=== PATIENT | female | born 1950 | race Caucasian/White ===

== ENCOUNTER 2017-12-24 06:57 | Inpatient (IN) | payer BC, MEDICARE ==
[~2017-12-24 06:57] MED LIST: CEFAZOLIN 2 Gram 2 GM/50 ML BAG IVPB ONE; CELECOXIB 100 MG CAPSULE PO ONE; FAMOTIDINE 20MG TABLET PO ONE; MECLIZINE 25 MG TABLET PO ONE; METOCLOPRAMIDE 10 MG TABLET PO ONE; VANCOMYCIN HCL 1,000 MG in DEXTROSE 5 % IN WATER 250 ML IVPB ONE
[2017-12-24 07:52] LABS: ABO GROUP O; ANTIBODY SCREEN NEGATIVE (NEGATIVE); RH TYPE POSITIVE
[2017-12-24] MEDS ORDERED: TRANEXAMIC ACID 1,000 MG/10 ML ML IV ONE ×2 (08:14→15:52)
[2017-12-24] MEDS ORDERED: 0.9 % SODIUM CHLORIDE 10 ML VIAL IVP ONE (08:14)
[2017-12-24] MEDS ORDERED: BISACODYL 10 MG SUPP RC PRN (11:17)
[2017-12-24] MEDS ORDERED: ONDANSETRON HCL IV 4 MG/2 ML VIAL IVP PRN (11:17)
[2017-12-24] MEDS ORDERED: MAGNESIUM HYDROXIDE 30 ML UDC PO PRN (11:17)
[2017-12-24] MEDS ORDERED: KETOROLAC 30 MG/ML VIAL IVP PRN ×2 (11:17)
[2017-12-24] MEDS ORDERED: AL HYDROX/MAG HYDROX 30ML UD PO PRN (11:17)
[2017-12-24] MEDS ORDERED: HYDROCODONE/APAP 10/325 TABLET PO PRN (11:17)
[2017-12-24] MEDS ORDERED: ZOLPIDEM TARTRATE 5 MG TABLET PO PRN (11:17)
[2017-12-24] MEDS ORDERED: ACETAMINOPHEN 325 MG TAB PO PRN (11:17)
[2017-12-24] MEDS ORDERED: ACETAMINOPHEN W/ CODEINE 300MG/60MG TABLET PO PRN (11:17)
[2017-12-24] MEDS ORDERED: NALOXONE 0.4 MG/1 ML VIAL IVP PRN (11:17)
[2017-12-24] MEDS ORDERED: DIPHENHYDRAMINE HCL 25 MG CAPSULE PO PRN (11:17)
[2017-12-24] MEDS ORDERED: ALBUTEROL HFA 8 GM INHALER INH PRN (13:09)
[2017-12-24] MEDS ORDERED: ALPRAZOLAM 0.25 MG TABLET PO PRN (13:30)
[2017-12-24] MEDS ORDERED: HYDROMORPHONE PF 1MG/ML **AMPULE IV ONE ×2 (14:00→15:52)
[2017-12-24] MEDS ORDERED: KETOROLAC 30 MG/ML VIAL IVP ONE (14:00)
[2017-12-24] MEDS ORDERED: ONDANSETRON HCL IV 4 MG/2 ML VIAL IVP ONE (14:00)
[2017-12-24] MEDS ORDERED: EPHEDRINE SULFATE 50 MG/ML ML IV ONE (14:00)
[2017-12-24] MEDS ORDERED: MIDAZOLAM HCL 2MG/2ML VIAL IV ONE (14:00)
[2017-12-24] MEDS ORDERED: DIPHENHYDRAMINE HCL 50 MG/ML VIAL IVP ONE (14:00)
[2017-12-24] MEDS ORDERED: *PACU ONLY* KETAMINE HCL 10 MG/ML (20ML) VIAL IV ONE (14:00)
[2017-12-24] MEDS ORDERED: PROPOFOL 10 MG/ML VIAL IV ONE (14:00)
[2017-12-24] MEDS ORDERED: FENTANYL PF 100MCG/2ML VIAL IV ONE (14:00)
[2017-12-24] MEDS: ACETAMINOPHEN W/ CODEINE 300MG/60MG TABLET PO PRN (14:29)
--- NOTE | 2017-12-24 14:38 | Rehab Evaluation ---
Patient Information - Patient Information Diagnosis: L hip DJD Ordered Treatment: PT Evaluate and Treat Status: Initial Evaluation Surgery: Yes (CANDIDO) Date of Surgery: 12/24/17 Past Medical/Surgical Hx: PAST MEDICAL/SURGICAL HISTORY Past Surgical History tubal umbilical hernia bowel resection hyst skin graft left thumb cardiac stent 1998 c scope bilat cat multiple back injs PMH - Respiratory Hx Respiratory Disorders Yes Hx Asthma No Hx Bronchitis Yes Hx Chronic Obstructive Yes: well controlled uses rescue inhaler when Pulmonary Disease (COPD) humid Hx Dyspnea No Hx Pneumonia Yes Hx Pulmonary Embolism No Hx Sleep Apnea No Hx Tuberculosis No Hx of CPAP No Hx of SOB Yes: at times PMH - Cardiovascular Hx Cardiovascular Disorders Yes Hx Abnormal EKG Yes Hx Cardiac Catheterization No Hx Chest Pain No Hx Congestive Heart Failure No Hx Deep Vein Thrombosis No Hx Edema No Hx Heart Attack Yes: 1997 Hx Hypertension Yes: on meds good control Hx Hypotension No Hx Irregular Heartbeat No Hx Palpitations No Hx Pacemaker/Defibrillator No Hx Vascular Disease No Hx Coronary Artery Disease Yes Hx Coronary Stent Yes: x's 1 1998 Exercise Tolerance Fair Comment: uses walker PMH - Neuro Hx Neurological Disorders No PMH - GI Hx Gastrointestinal Disorders No PMH - Hx Genitourinary Disorders No Comment: s/p hyst PMH - Endocrine Hx Endocrine Disorders No Hx Diabetes No Hx Thyroid Disease No PMH - Musculoskeletal Hx Musculoskeletal Disorders Yes Hx Arthritis Yes: DDD OA Hx Back Injury No Hx Fibromyalgia No Hx Gout No Hx Musculoskeletal Disease No Hx Osteoporosis No PMH - Psych Hx Psychiatric Problems Yes Hx Anxiety Yes: uses xanax at times PMH - Hematology/Oncology Hx Hematology/Oncology No Disorders Premorbid Status: Detail (The patient was independent with mobility and used a cane with ambulation prior to surgery.) Social History: Detail (The patient is living with a friend post surgery in a one story home with 2 steps without a handrail. The patient's bathroom is equipped with a tub/shower combination with grab bars and a standard toilet. The patient has a tub seat and an elevated toilet seat. The patient has a 4 wheeled walker and a standard cane with a wide base of support.) Precautions: [place], Fall, Other (Total hip precautions. The patient required verbal cues to recall all THR precautions.) - Time With Patient Total Time Spent With Patient (Min): 30 Treatment Procedures: Detail (Initial Evaluation, gait training.) Subjective Information - Subjective Information Per Patient (The patient had no complaints of pain. The patient did complain of lightheadness when ambulating.) Objective Data - Mental Status Patient Orientation: Oriented x3 - Visual Perception Appears within normal limits for therapeutic activities - ROM Not within normal limits (left hip ROM is within THR precautions.) - Strength/Tone Not within normal limits (Patient's LE strength was not tested s/p surgery however patient's LE strength was functional.) - Bed Mobility Independent (Independent with supine to sit with THR precautions maintained.) - Transfers Independent (Independent sit to and from stand transfers. Patient completed toilet transfer with supervision for safety.) - Balance Balance Sitting: Good Balance Standing: Good - Sensation Intact - Gait Detail (The patient ambulated with her own 4 wheeled walker a distance 48 feet x1, WBAT on the L LE with assist of 1 to handle equipment.) Therapy Assessment - Therapy Assessment Detail (The patient was independent with bed mobility and transfers, with supervision for safety only for ambulation. Feel the patient will progress well with mobility.) Problem List - Problem List Physical Therapy Problem List: Detail (1) Decreased L LE strength as to be expected following surgery. 2) Nonambulatory on stairs) Goals - Goals Physical Therapy Goals: 1) The patient will be independent with HEP of CANDIDO exercise program. 2) The patient will demonstrate good understanding of CANDIDO precautions. 3) The patient will ambulate on stairs with supervision and of 1 for safety. Prognosis - Prognosis Good Plan - Plan Physical Therapy Plan: PT 1-2 times a day until all inpatient PT goals are met for gait training, transfer training and instruction in HEP of CANDIDO exercises.
[2017-12-24] MEDS ORDERED: HETASTARCH IN 0.9 % NACL 500 ML IV ONE (15:52)
--- NOTE | 2017-12-24 16:31 | Operative Note ---
DATE OF SURGERY: 12/24/17 PREOPERATIVE DIAGNOSIS: END-STAGE ARTHROSIS OF THE LEFT HIP. POSTOPERATIVE DIAGNOSIS: END-STAGE ARTHROSIS OF THE LEFT HIP. PROCEDURE: CEMENTLESS LEFT TOTAL HIP ARTHROPLASTY USING HANEY-NEPHEW COMPONENTS WITH A SIZE 54 NO-HOLE REFLECTION CUP, A 35 DEGREE OFFSET, 32 MM DIAMETER LINER , A SIZE 13 HIGH OFFSET CEMENTLESS [place] STEM WITH A +0, 32 MM DIAMETER COBALT CHROME HEAD. STAFF SURGEON: DR. GALLEGO. ANESTHESIA: SPINAL. PREPARATION: CHLORAPREP. INDIVIDUAL CONSIDERATION: NONE. PROCEDURE: The patient was taken to the Operating Room and placed supine on the operating room table. She had a successful induction of a spinal anesthetic. She was then placed on her side, left side up, and her left leg and hip were prepped and draped in the usual fashion. The patient had direct posterior approach to the hip. Sharp dissection was carried down through the skin and subcutaneous tissues. Small veins were coagulated with a Bovie. The tensor gluteal fascia was opened along the entire length of the incision and deep retractors were placed. Short external rotators were identified, piriformis fossa and removed and this exposed the posterior capsule. The posterior capsulectomy was performed. The hip was dislocated posteriorly. She had flattening of the head and large osteophytes. A femoral neck cut was then made a little above a fingerbreadth above the lesser troch using an oscillating saw. A rim capsulectomy was performed starting with 45 mm reamer to get to the medial wall. I reamed the introitus, which was a 53 for a size 54 cup. I just slightly under-reamed to 52. After thorough irrigation, I impacted a size 54 no-hole reflection cup at 20 degrees of forward flexion and 40 degrees of abduction using the extra-articular alignment guide and bony landmarks. It was set and found to be solid. The center cap screw was placed and a 32 mm diameter, 35-degree offset liner was impacted and there was solid cementless fixation. The proximal femur was delivered into the wound and box cutting osteotome was used to remove proximal metaphyseal bone. Mid stem reaming was done to a size 13. I started feeling bony cortex at maybe 11. I broached a 13. I tried to antevert as much as I could. She had a neutral angle but I got about 20 degrees. After calcar reaming with the broach, which was solid, I then found with a High Offset +0, I had full stability. I removed the broach, irrigated out completely, impacted a size 13 High Offset [employer] stem with solid calcar contact and solid cementless fixation. I irrigated and dried the Flood Taper in the wound. Impacted a size 33 [place] head and reduced the hip. I had solid stability. Even in full flexion and internal rotation up to 20-30 degrees with it flexed to 140, I had stability, full anterior stability with the hip in full extension and external rotation. She had a flexion contracture preoperatively and I was able to stretch this out to at least neutral. The sciatic nerve was inspected and found to be completely intact. After good hemostasis, the tensor gluteal fascia was then closed with a running #1 [address] I did place 30 mL of Tranexamic acid mixed with saline into the space. The subcutaneous was closed with running 0 quill and the skin was closed with girish. The skin and subcutaneous tissues were infiltrated with 30 mL of 0.5% Marcaine with Epinephrine and a sterile Bulkee compressive Aquacel-type dressing was applied. The patient tolerated the procedures well. Needle and sponge counts were correct. Estimated blood loss was minimal and was taken back to Recovery in good condition. There were no complications. JOB NUMBER: [id number] [facility]
[2017-12-24] MEDS: CEFAZOLIN 2 Gram 2 GM/50 ML BAG IVPB SCH (16:54)
[2017-12-24] MEDS: POTASSIUM CHLORIDE/D5-0.9%NACL 20 MEQ/1,000 ML BAG IV SCH (16:54)
[2017-12-24] MEDS: TRAMADOL HCL 50 MG TABLET PO PRN (16:55)
[2017-12-24] MEDS: HYDROCODONE/APAP 10/325 TABLET PO PRN (21:34)
[2017-12-24] MEDS: HYDROMORPHONE HCL 2 MG/ML VIAL IM PRN ×2 (21:36→21:53)
[2017-12-24] MEDS: DOCUSATE SODIUM 100 MG CAPSULE PO SCH (21:39)
[2017-12-24] MEDS ORDERED: ATORVASTATIN 20 MG TABLET PO SCH (22:00)
[2017-12-25] MEDS: CEFAZOLIN 2 Gram 2 GM/50 ML BAG IVPB SCH ×2 (00:59→08:54)
[2017-12-25] MEDS: HYDROMORPHONE HCL 2 MG/ML VIAL IM PRN ×2 (01:06→04:07)
[2017-12-25] MEDS: POTASSIUM CHLORIDE/D5-0.9%NACL 20 MEQ/1,000 ML BAG IV SCH (01:09)
[2017-12-25] MEDS: HYDROCODONE/APAP 10/325 TABLET PO PRN ×2 (01:47→06:37)
[2017-12-25 06:41] LABS: HEMATOCRIT 32.3 % (35.0-47.0)
[2017-12-25 06:59] LABS: BLOOD UREA NITROGEN 11 mg/dL (8-23); CREATININE 0.6 mg/dL (0.5-0.9); EST GLOMERULAR FILTRATION RATE > 60 mL/min; GLUCOSE,RANDOM 128 mg/dL (74-109)
[2017-12-25] MEDS: ACETAMINOPHEN W/ CODEINE 300MG/60MG TABLET PO PRN ×2 (08:54→13:47)
[2017-12-25] MEDS ORDERED: BREO (FLUTICASONE/VILANTEROL) 100MCG/25MCG INHALER INH SCH (10:00)
[2017-12-25] MEDS ORDERED: LISINOPRIL 10 MG TABLET PO SCH (10:00)
[2017-12-25] MEDS ORDERED: ASPIRIN 325 MG TAB ENTERIC-COATED PO SCH (10:00)
[2017-12-25] MEDS ORDERED: RIVAROXABAN 10 MG TABLET PO SCH (10:00)
[2017-12-25] MEDS ORDERED: MULTIVITAMINS/MINERALS TABLET PO SCH (10:00)
[2017-12-25] MEDS ORDERED: CHOLECALCIFEROL 1,000 UNIT TABLET PO SCH (10:00)
[2017-12-25] MEDS ORDERED: FERROUS SULFATE 325 MG TAB PO SCH (10:00)
[2017-12-25] MEDS: TRAMADOL HCL 50 MG TABLET PO PRN (10:32)
[2017-12-25] MEDS: DOCUSATE SODIUM 100 MG CAPSULE PO SCH (10:33)
--- NOTE | 2017-12-25 10:51 | Rehab Evaluation ---
Patient Information - Patient Information Diagnosis: L hip DJD Ordered Treatment: OT Evaluate and Treat Status: Initial Evaluation Surgery: Yes (CANDIDO) Date of Surgery: 12/24/17 Past Medical/Surgical Hx: PAST MEDICAL/SURGICAL HISTORY Past Surgical History tubal umbilical hernia bowel resection hyst skin graft left thumb cardiac stent 1998 c scope bilat cat multiple back injs PMH - Respiratory Hx Respiratory Disorders Yes Hx Asthma No Hx Bronchitis Yes Hx Chronic Obstructive Yes: well controlled uses rescue inhaler when Pulmonary Disease (COPD) humid Hx Dyspnea No Hx Pneumonia Yes Hx Pulmonary Embolism No Hx Sleep Apnea No Hx Tuberculosis No Hx of CPAP No Hx of SOB Yes: at times PMH - Cardiovascular Hx Cardiovascular Disorders Yes Hx Abnormal EKG Yes Hx Cardiac Catheterization No Hx Chest Pain No Hx Congestive Heart Failure No Hx Deep Vein Thrombosis No Hx Edema No Hx Heart Attack Yes: 1997 Hx Hypertension Yes: on meds good control Hx Hypotension No Hx Irregular Heartbeat No Hx Palpitations No Hx Pacemaker/Defibrillator No Hx Vascular Disease No Hx Coronary Artery Disease Yes Hx Coronary Stent Yes: x's 1 1998 Exercise Tolerance Fair Comment: uses walker PMH - Neuro Hx Neurological Disorders No PMH - GI Hx Gastrointestinal Disorders No PMH - Hx Genitourinary Disorders No Comment: s/p hyst PMH - Endocrine Hx Endocrine Disorders No Hx Diabetes No Hx Thyroid Disease No PMH - Musculoskeletal Hx Musculoskeletal Disorders Yes Hx Arthritis Yes: DDD OA Hx Back Injury No Hx Fibromyalgia No Hx Gout No Hx Musculoskeletal Disease No Hx Osteoporosis No PMH - Psych Hx Psychiatric Problems Yes Hx Anxiety Yes: uses xanax at times PMH - Hematology/Oncology Hx Hematology/Oncology No Disorders Premorbid Status: Detail (The patient was independent with mobility and used a Hurrycane and 4WW with ambulation prior to surgery. Pt. reported being Ind. in all ADLs prior to surgery but required assistance with laundry.) Social History: Detail (The patient is living with a friend (Jac[place]) post surgery in a one story home with 2 steps without a handrail. The patient's bathroom is equipped with a tub/shower combination with grab bars and a standard toilet. The patient has a tub seat, an elevated toilet seat, and mechanic chief. The patient has a 4 wheeled walker and a Hurrycane with a wide base of support.) Precautions: [place], Fall, Other (Total hip precautions. The patient required verbal cues to recall all THR precautions.) - Time With Patient Total Time Spent With Patient (Min): 30 Treatment Procedures: Detail (OT evaluation: Low Complexity) Subjective Information - Subjective Information Per Patient (Pt. stated she was frustrated and agitated due to increased pain, lack of sleep, and only receiving bits and peices of information regarding recovery on this date.) Objective Data - Pain Pain Present: Yes Pain Intensity: 7 (Pt. was recently administered pain medication. ) Pain Scale Used: Numeric (1 - 10) - Mental Status Patient Orientation: Oriented x3 - Visual Perception Appears within normal limits for therapeutic activities - ROM Other (WNL to complete ADLs such as UB/LB dressing and toileting.) - Strength/Tone Other (WNL to complete ADLS such as UB/LB dressing and toileting.) - Coordination Appears within normal limits for therapeutic activities - Bed Mobility Independent (Ind. from supine > EOB but required min VC to adhere to hip precautions with EOB > supine.) - Transfers Independent (Sit <> stand from bed and 3-in-1 commode to 4WW.) - Balance Balance Sitting: Good Balance Standing: Good - ADL's/IADL's Detail (Bed mobility supine > EOB Ind. and EOB > supine required VC to adhere to hip precautions. Functional mobility Ind. within pt.'s room to complete ADL tasks. Toileting with 3-in-1 commode Ind. including hyiegne and clothing management while adhering to hip precautions. Education provided to pt. regarding safely donning/doffing pants with use of mechanic chief and donning/doffing slip on shoes to adhere to hip precautions. Pt. showed understanding through demonstration of donning pants with mechanic chief, shoes, and verbalizing understanding of doffing pants.) Therapy Assessment - Therapy Assessment Detail (Pt. tolerated well and demonstrated good prognosis with requiring VC to adhere to hip precautions.) Patient Education - Patient Education Teaching Topic: Equipment Use, Precautions Response: Return Demonstration, Reinforcement Needed (VC required to adhere to hip precautions.), Verbalize Understanding Teaching Method: Demonstration Teaching Recipient: Patient Problem List - Problem List Physical Therapy Problem List: Detail (1) Decreased L LE strength as to be expected following surgery. 2) Nonambulatory on stairs) Goals - Goals Physical Therapy Goals: 1) The patient will be independent with HEP of CANDIDO exercise program. 2) The patient will demonstrate good understanding of CANDIDO precautions. 3) The patient will ambulate on stairs with supervision and of 1 for safety. Prognosis - Prognosis Good Plan - Plan Physical Therapy Plan: PT 1-2 times a day until all inpatient PT goals are met for gait training, transfer training and instruction in HEP of CANDIDO exercises. Occupational Therapy Plan: No further Inpatient OT required on this date.
--- NOTE | 2017-12-25 11:41 | Physical Therapy Tx Note ---
Physical Therapy Tx Note - Treatment Note Tolerated: Good Total Time Spent With Patient: 20 Physical Therapy Tx Note: Detail (The patient was lying in bed when PT arrived and had complaints of hip pain. The patient ambulated with wheeled walker a distance of 200 feet WBAT on the L LE independently.The patient ambulated on 3 steps with use of railing and standard cane, WBAT on the L LE independently. The patient's CANDIDO precautions and HEP were reviewed. The patient has met all inpatient PT goals.) Physical Therapy Problem List: Detail (1) Decreased L LE strength as to be expected following surgery. 2) Nonambulatory on stairs) Physical Therapy Goals: 1) The patient will be independent with HEP of CANDIDO exercise program MET. 2) The patient will demonstrate good understanding of CANDIDO precautions. MET. 3) The patient will ambulate on stairs with supervision and of 1 for safety.MET Physical Therapy Plan: The patient has met all inpatient PT goals and is discharged from inpatient PT at this time. The patient is to receive outpatient PT.
--- NOTE | 2017-12-26 20:10 | Discharge Summary ---
DATE OF ADMISSION: 12/24/2017 DATE OF DISCHARGE: 12/25/2017 DATE OF SURGERY: 12/24/2017 HISTORY: Lisa is a delightful 67-year-old female who presents with end-stage arthrosis of her left hip. She was admitted after a left total hip arthroplasty. Postoperatively she did well. Her discharge hemoglobin was 10. She did not require transfusion. DISCHARGE INSTRUCTIONS: The plan is to discharge her to home in the care of her family. She wants to go directly to outpatient physical therapy. She will take Xarelto for an additional four days and then she will continue on her daily Aspirin regimen, which will cover her for DVT prophylaxis. She will come back to my office in two weeks for suture removal. Her discharge condition was good. FINAL DIAGNOSIS/PRIMARY DIAGNOSIS: END-STAGE ARTHROSIS OF THE LEFT HIP. SECONDARY DIAGNOSIS: ACUTE OPERATIVE BLOOD LOSS ANEMIA. OPERATIONS AND PROCEDURES: CEMENTLESS LEFT TOTAL HIP ARTHROPLASTY. JOB NUMBER: [id number] MTDD
== END 2017-12-25 17:00 | disposition home or self-care (01) | DRG 470 ==
LOC: MEDSURG 06:57
PROVIDERS: ADMIT Orthopaedic Surgery; ATTEND Orthopaedic Surgery
PROC: 0SRB01A Replacement of Left Hip Joint with Metal Synthetic Substitute, Uncemented, Open Approach (ICD-10-PCS; principal; 2017-12-24 09:00)
DX: M16.12 Unilateral primary osteoarthritis, left hip (principal); I10 Essential (primary) hypertension; E78.00 Pure hypercholesterolemia, unspecified; J44.9 Chronic obstructive pulmonary disease, unspecified; I25.10 Atherosclerotic heart disease of native coronary artery without angina pectoris; I25.2 Old myocardial infarction
CPT/HCPCS: 80048; 85014; 85018; 86850; 86900; 86901; 94640; 97530; J1170; J1200; J1885; J2405; J3480; J7060